=== PATIENT | female | born 1980 | race Caucasian/White ===

== ENCOUNTER 2019-05-19 10:15 | Emergency (ER) | payer OTHER ==
[~2019-05-19] VITALS: Ht 172.7 cm; Wt 92.0 kg
[~2019-05-19 10:15] MED LIST: GABA600T PO; HYDR-3307 PO; OXYC-302 PO
--- NOTE | 2019-05-19 10:52 | NUR ---
PT C/O MANN FOR ONE HOUR BUS OR TRUCK G[employer] ME[employer]IC THAT WAS PRECIPITATED BY PAIN BEHID THE RIGHT EYE WITH BLURRED VISION. + NAUSEA PER PT. PT REPORTS HAVING SINUS CONGESTION, "RAW THROAT" OVER LAST FEW DAYS. LIGHTS OFF IN THE ROOM. WAITING FOR ORDERS.
[2019-05-19] MEDS ORDERED: PROCHLORPERAZINE 5 MG/ML, 2ML IVPush ONE (11:00)
[2019-05-19] MEDS ORDERED: DIPHENHYDRAMINE 50 MG/ML, 1ML IVPush ONE (11:00)
[2019-05-19] MEDS ORDERED: SODIUM CHLORIDE 0.9%, 500ML IVBOLUS ONE (11:00)
[2019-05-19] MEDS ORDERED: DIPHENHYDRAMINE 50 MG/ML, 1ML ONE (11:02)
[2019-05-19] MEDS ORDERED: PROCHLORPERAZINE 5 MG/ML, 2ML ONE (11:02)
--- NOTE | 2019-05-19 11:40 | NUR ---
CHART UP FOR MD RECHECK. PT AWARE.
--- NOTE | 2019-05-19 12:40 | NUR ---
PT TO BE RECHECKED AT 1300 PER MD. PT RESTING IN BED IN NAD. VSS.
--- NOTE | 2019-05-19 13:00 | NUR ---
STILL WAITING ON MD DISPO. PT STILL DENIES ANY PAIN.
[2019-05-19] MEDS ORDERED: KETOROLAC 30 MG/1 ML ONE (13:28)
[2019-05-19] MEDS ORDERED: KETOROLAC 30 MG/1 ML IVPush ONE (13:30)
[2019-05-19 13:55] VITALS: BP 98/58
== END 2019-05-19 13:59 | disposition home or self-care (01) ==
LOC: ED 12:42
DX: R51 Headache (principal)
CPT/HCPCS: 70450; 96374; 96375; 99284; J0780; J1200; J1885; J7040

== ENCOUNTER 2019-11-08 11:32 | Outpatient (CLI) | payer OTHER ==
[~2019-11-08 11:32] MED LIST changes: -HYDR-3307 PO; +HYDR-36 PO
[2019-11-08] MEDS ORDERED: PARO40TA3 PO (11:59)
[2019-11-08] MEDS ORDERED: ALPR1TAB2 PO (11:59)
== END 2019-11-08 23:59 | disposition home or self-care (01) ==
LOC: STAR 11:32
PROVIDERS: ATTEND Specialist
DX: Z02.9 Encounter for administrative examinations, unspecified (principal)